=== PATIENT | female | born 1980 | race Caucasian/White ===

== ENCOUNTER 2023-01-01 08:11 | Outpatient (CLI) | payer OTHER, SELFPAY ==
--- NOTE | 2023-01-01 08:15 | MR_ITS ---
[facility] [address] [facility] [address] Phone:?[phone] Fax:?[phone] Referring Physician Information: Jeevan Le M.D. [address] [facility] [address] Phone:?[phone] Fax:?[phone] Patient:Hortencia Costello D.O.B:?1980 Sex:?Female Phone:?[phone] [facility] MRN:?[id number] Exam Date:?01/01/2023 EXAM: MRI EXAMINATION OF THE RIGHT KNEE CLINICAL INFORMATION: Right knee pain. History of injury and surgery. Evaluate medial meniscus tear. Locking. TECHNICAL INFORMATION: Coronal PD and STIR. Axial PD and T2 fat saturation. Sagittal PD and PD fat saturation images acquired. No prior studies for comparison. INTERPRETATION: Bones: There is a postsurgical appearance of ACL reconstruction surgery. No occult fracture or AVN. No other abnormal bone marrow edema pattern is identified. Ligaments and tendons: The medial collateral ligament is intact, without acute sprain or tear. The iliotibial band, fibular collateral ligament, biceps femoris tendon and popliteus tendon all are intact. Status post ACL reconstruction surgery. The graft is seen to be intact. Mild appearing arthrofibrosis, particularly involving the distal fibers, but without evidence for a cyclops lesion. Extensor Mechanism: The patellar and quadriceps tendons are intact. There are postsurgical changes involving the patellar tendon. The medial and lateral retinacula are intact. Knee Joint: There is a small knee joint effusion. There also is a small popliteal cyst. There is no discrete loose body seen within the joint. Medial Compartment: There is no evidence for discrete medial meniscal tear. No displaced flap fragment or parameniscal cyst. There is no focal chondral defect. No other significant changes of chondromalacia. Lateral Compartment: There is no evidence for discrete lateral meniscal tear. No displaced flap fragment or parameniscal cyst. There is no focal chondral defect. No other significant changes of chondromalacia. Patellofemoral articulation: Broad grade 3 and IV chondromalacia involves the midline patella and medial facet. Chondromalacia with full-thickness cartilage loss involves the mid to superior periphery of the medial trochlear groove. CONCLUSION: 1. Status post ACL construction surgery. The graft is seen to be intact. Mild adjacent arthrofibrosis, particularly distally, but without evidence for a cyclops lesion. 2. No evidence for a meniscal tear, specifically involving the medial meniscus. 3. 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 Additional full-thickness cartilage loss of the mid to superior periphery of the medial trochlear groove. 4. There is a small joint effusion and popliteal cyst. No evidence for a loose body. KES Electronically signed on 01/01/2023 12:45:00 PM by Dean Em M.D.
== END 2023-01-01 08:12 | disposition home or self-care (01) ==
LOC: MRI 08:11
PROVIDERS: PCP Physician Assistant; Visit Provider Orthopaedic Surgery Sports Medicine
DX: M25.561 Pain in right knee (principal); M22.41 Chondromalacia patellae, right knee; M25.461 Effusion, right knee
CPT/HCPCS: 73721

== ENCOUNTER 2023-01-27 08:45 | Outpatient (RCR) | payer OTHER, SELFPAY ==
--- NOTE | 2023-01-13 13:41 | PT.OPEX ---
[facility] [place] [facility] Eval PT [facility] Outpatient Eval Start: 01/13/23 08:25 Freq: Status: Active Protocol: Document 01/13/23 08:31 CRP (Rec: 01/13/23 13:36 CRP [id number]) E-signed By Selvin Sanchez PT Physical Therapy Outpatient Evaluation Insurance Information Insurance Name [employer] Medical Diagnosis R knee OA Treating Diagnosis R knee pain R knee stiffness Referring MD Dr Le Subjective Subjective Pt recently had L toe ingrown toenail that needed treatment. This made her walk differently which she is thinking made her R knee start to give her problems. Knee started about 2 months ago after a 2-3 mile walk. Knee cap will feel like it locks or catches. Will get a little bit of swelling. Sxs are more medial knee. Mid she did have an ACL repair. Has also had some L ant hip pain that began about the same time. Works at [employer] as a nurse. Overall she does feel things are getting better . Is using a knee strap at times. Sleep is fine. Getting up in the morning her knee is pretty stiff. Pain Comments 10/11 Current Work Status [employer] Occupation Nurse Objective Range of Motion Knee ROM Flex WNL with pain on over pressure - medial joint line pain Ext min restriction on over pressure at end range Hip ROM WNL Strength MMT R knee ext 4/5. KNee flex 5/5. Hip Abd and IR 4-/5 Swelling No noted swelling Palpation Palpable R medial joint line pain Pain medial border of R patella Other/Pertinent Objective Patellar compression test - negative Juice - Positive Assessment Assessment/Impression Pt presents to the clinic with signs and sxs consistent with patellofemoral pain syndrome and possible internal joint derangement. Skilled PT is necessary to incorporate ther ex, nm david, manual therapy, ther act and pt education to decrease pain and improve functional mobility. Primary Functional Limitations Limitations with gait, running , exer and ladies locker room attendant Plan of Care Rehabilitation Potential Excellent Physical Therapy Goals 1. Pt will show 100% independence with HEP without c/o in 4 weeks 2. Pt will walk for exer as desired without pain in 8 weeks 3. Pt will complete all recreational activity without pain in 12 weeks Coordination/Communication With Referral Source Treatment Plan/Direct Interventions Gait Training,Joint Mobilization,Manual Therapy, Neuromuscular Re-ed,Self-Care/ Home Management,Therapeutic Activities,Therapeutic Exercises Frequency/Duration 1x/wk for 12 weeks Patient Will Be Discharged From Therapy Completion of LTG(s),Skills Plateau,Independent w/HEP, Independently Progressing Evaluation Billing Untimed Code Treatment Minutes 30 Complexity Moderate Certification Information Provider Signature Shows Agreement With POC & Medical Necessity Physician Signature & Date Requested Please Sign/Date Here Physician Comment/Change : Physician NPI Number #
== END 2023-05-27 23:59 | disposition home or self-care (01) ==
PROVIDERS: PCP Physician Assistant; Visit Provider Orthopaedic Surgery Sports Medicine
DX: M17.11 Unilateral primary osteoarthritis, right knee (principal); M25.561 Pain in right knee; M25.661 Stiffness of right knee, not elsewhere classified; Z51.89 Encounter for other specified aftercare
CPT/HCPCS: 97110; 97112; 97140; 97162

== ENCOUNTER 2023-08-24 14:59 | Outpatient (CLI) | payer OTHER, SELFPAY | END 2023-08-24 15:00 | disposition home or self-care (01) | PROVIDERS: PCP Internal Medicine; Visit Provider Internal Medicine | DX: E78.2 Mixed hyperlipidemia (principal); E64.9 Sequelae of unspecified nutritional deficiency; Z13.29 Encounter for screening for other suspected endocrine disorder; Z11.9 Encounter for screening for infectious and parasitic diseases, unspecified | CPT/HCPCS: 80053; 80061; 82306; 82607; 84443; 87340 ==

== ENCOUNTER 2023-08-26 08:35 | Outpatient (CLI) | payer OTHER, SELFPAY | END 2023-08-26 08:36 | disposition home or self-care (01) | LOC: NFLDREF 08-27 05:36 | PROVIDERS: PCP Internal Medicine; Referring Provider Physician Assistant; Visit Provider Registered Nurse | DX: R73.09 Other abnormal glucose (principal); Z02.1 Encounter for pre-employment examination; D64.9 Anemia, unspecified; E78.5 Hyperlipidemia, unspecified; R79.89 Other specified abnormal findings of blood chemistry; L29.2 Pruritus vulvae | CPT/HCPCS: 86704; 86735; 86762; 86765; 86787 ==

== ENCOUNTER 2023-12-09 08:01 | Outpatient (CLI) | payer OTHER, SELFPAY ==
--- NOTE | 2023-12-09 07:45 | CRLHL7_ITS ---
For Patients: As a result of the Century Cures Act, medical imaging exams and procedure reports are released immediately into your electronic medical record. You may view this report before your referring provider. If you have questions, please contact your health care provider. BILATERAL DIGITAL SCREENING MAMMOGRAM WITH COMPUTER-AIDED DETECTION AND TOMOSYNTHESIS CLINICAL HISTORY: Routine screening exam. COMPARISON: 09/26/2022, 08/27/2021. TECHNIQUE: Digital mammogram in CC and MLO projections including computer-aided detection (CAD). Tomosynthesis was used in this interpretation. BREAST COMPOSITION: The breasts are heterogeneously dense, which may obscure small masses. FINDINGS: RIGHT Breast: No suspicious findings. LEFT Breast: Focal asymmetric density within the lateral breast, slightly inferior, 7 cm from the nipple. IMPRESSION: LEFT breast asymmetry/mass. RECOMMENDATIONS: Additional mammographic views of the LEFT breast including 3D spot compression CC/MLO. LEFT breast ultrasound may also be required. BI-RADS Category 0: Incomplete: Need Additional Imaging Evaluation and/or Prior Mammograms for Comparison [facility] will contact the patient for follow-up. A lay language report of this examination will be provided to the patient. Dictated by Fabian Galvan MD @ 12/18/2023 9:42:09 AM jj/Dictated by: Fabian Galvan MD @ 12/18/2023 9:42:00 AM (Electronically Signed)
== END 2023-12-09 08:02 | disposition home or self-care (01) ==
PROVIDERS: PCP Internal Medicine; Visit Provider Registered Nurse
DX: Z12.31 Encounter for screening mammogram for malignant neoplasm of breast (principal); N63.20 Unspecified lump in the left breast, unspecified quadrant
CPT/HCPCS: 77063; 77067

== ENCOUNTER 2023-12-30 09:44 | Outpatient (CLI) | payer OTHER, SELFPAY ==
--- NOTE | 2023-12-30 09:45 | CRLHL7_ITS ---
For Patients: As a result of the Cures Act, medical imaging exams and procedure reports are released immediately into your electronic medical record. You may view this report before your referring provider. If you have questions, please contact your health care provider. LEFT DIAGNOSTIC MAMMOGRAM WITH COMPUTER-AIDED DETECTION AND TOMOSYNTHESIS LEFT BREAST ULTRASOUND CLINICAL HISTORY: LEFT breast mass/asymmetry. COMPARISON: 12/09/2023. TECHNIQUE: Digital LEFT mammogram in two projections. Computer-aided detection and tomosynthesis were used in this interpretation. Real-time ultrasound imaging of LEFT breast with imaging documentation. Scanning was performed by both the technologist and the radiologist. BREAST COMPOSITION: The breast is heterogeneously dense, which may obscure small masses. FINDINGS: 3D spot compression CC/MLO LEFT breast mammogram images submitted. Decreased conspicuity of previously noted asymmetric density. No architectural distortion. Benign calcifications. Targeted LEFT breast ultrasound performed at 4 o`clock 7 cm from the nipple. Normal fibroglandular tissue is present. No fibrocystic change or mass. IMPRESSION: Normal fibrocystic tissue. No evidence of malignancy. RECOMMENDATIONS: Annual bilateral screening mammography. BI-RADS Category 2: Benign Results and recommendations discussed with the patient. A lay language report of this examination will be provided to the patient. Dictated by Fabian Galvan MD @ 12/30/2023 10:45:36 AM /sp/shaun SP/Dictated by: Fabian Galvan MD @ 12/30/2023 10:45:00 AM SP/Dictated by: Fabian Galvan MD @ 12/30/2023 10:45:00 AM (Electronically Signed)
--- NOTE | 2023-12-30 10:15 | CRLHL7_ITS ---
For Patients: As a result of the Century Cures Act, medical imaging exams and procedure reports are released immediately into your electronic medical record. You may view this report before your referring provider. If you have questions, please contact your health care provider. PLEASE SEE LEFT BREAST DIAGNOSTIC MAMMOGRAM PERFORMED THE SAME DAY. CRL:sp SP/Dictated by: Fabian Galvan MD @ 12/30/2023 10:45:00 AM (Electronically Signed)
== END 2023-12-30 09:45 | disposition home or self-care (01) ==
LOC: MAMMO 09:45
PROVIDERS: PCP Internal Medicine; Visit Provider Registered Nurse
DX: N63.20 Unspecified lump in the left breast, unspecified quadrant (principal); R92.8 Other abnormal and inconclusive findings on diagnostic imaging of breast
CPT/HCPCS: 76642; 77065; G0279

== ENCOUNTER 2024-08-11 11:55 | Outpatient (CLI) | payer OTHER, SELFPAY ==
[2024-08-11 16:12] LABS: Bacterial Vaginosis* Negative (Negative); Candida glab/krus NOT DETECTED (No Detected); Candida species NOT DETECTED (No Detected); Trichomonas vaginalis NOT DETECTED (No Detected)
== END 2024-08-11 11:56 | disposition home or self-care (01) ==
LOC: NFLDREF 11:55
PROVIDERS: Visit Provider Obstetrics & Gynecology
DX: R10.2 Pelvic and perineal pain (principal); L29.2 Pruritus vulvae; R82.90 Unspecified abnormal findings in urine; B95.61 Methicillin susceptible Staphylococcus aureus infection as the cause of diseases classified elsewhere
CPT/HCPCS: 81513; 87086; 87186; 87481; 87661